=== PATIENT | male | born 1995 | race African-American/Black ===

== ENCOUNTER 2017-01-31 19:09 | Emergency (ER) | payer OTHER ==
[~2017-01-31] VITALS: Ht 180.3 cm; Wt 61.3 kg
[2017-01-31 19:10] VITALS: BP 124/83
[2017-01-31] MEDS ORDERED: HYDROcodone/APAP 5/325 TABLET PO STA (20:38)
[2017-01-31] MEDS ORDERED: HYDROcodone/APAP 5/325 TABLET ONE (20:41)
== END 2017-01-31 20:46 | disposition home or self-care (01) ==
LOC: ED 20:16
DX: K02.9 Dental caries, unspecified (principal)
CPT/HCPCS: 99283

== ENCOUNTER 2018-04-18 14:30 | Emergency (ER) | payer SELFPAY ==
[~2018-04-18] VITALS: Ht 177.8 cm; Wt 61.6 kg
[2018-04-18 14:57] VITALS: BP 97/63
== END 2018-04-18 15:41 | disposition home or self-care (01) ==
LOC: ED 15:30
DX: K08.89 Other specified disorders of teeth and supporting structures (principal); F17.200 Nicotine dependence, unspecified, uncomplicated
CPT/HCPCS: 99283